=== PATIENT | female | born 1955 | race Caucasian/White ===

== ENCOUNTER → 2020-08-29 | Outpatient (CLI) | payer MEDICARE ==
[~2020-08-29] MED LIST: IBUPROFEN800 MG PO
== END ==
LOC: CT 14:24
DX: R93.89 Abnormal findings on diagnostic imaging of other specified body structures (principal); R91.8 Other nonspecific abnormal finding of lung field
CPT/HCPCS: 71250

== ENCOUNTER → 2020-11-04 | Outpatient (CLI) | payer MEDICARE | LOC: MAMO 12:45 → US 14:30 | DX: R92.8 Other abnormal and inconclusive findings on diagnostic imaging of breast (principal) | CPT/HCPCS: 76641-LT; 77065 ==

== ENCOUNTER → 2021-05-15 | Outpatient (CLI) | payer MEDICARE | LOC: MAMO 13:22 | DX: R92.8 Other abnormal and inconclusive findings on diagnostic imaging of breast (principal) | CPT/HCPCS: 77066; G0279 ==

== ENCOUNTER → 2021-09-05 | Outpatient (CLI) | payer MEDICARE | LOC: ECHO 09-03 11:45 → CT 10:06 | DX: R01.1 Cardiac murmur, unspecified (principal); R91.8 Other nonspecific abnormal finding of lung field | CPT/HCPCS: ECHO; 71250; 93306 ==